=== PATIENT | male | born 1995 | race African-American/Black ===

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

== ENCOUNTER 2017-07-17 21:09 | Emergency (ER) | payer OTHER ==
[2017-07-17 21:25] VITALS: BP 115/56; PULSE 80; TEMP 98.6; BMI 25.7
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
== END 2017-07-17 22:31 | disposition home or self-care (01) ==
LOC: JER 21:09 → JERFT 21:09
DX: S60.512A Abrasion of left hand, initial encounter (principal); W22.8XXA Striking against or struck by other objects, initial encounter; Y93.89 Activity, other specified; Y92.89 Other specified places as the place of occurrence of the external cause; F41.9 Anxiety disorder, unspecified; J45.909 Unspecified asthma, uncomplicated
CPT/HCPCS: 73130-TC-LT; 99281-25

== ENCOUNTER 2017-10-13 23:59 | Emergency (ER) | payer OTHER ==
[2017-10-14 00:22] VITALS: BP 142/61; PULSE 72; TEMP 98.6; BMI 24.4
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
[2017-10-14] MEDS ORDERED: SODIUM CHLORIDE 0.9% 500 ML INFUS.BAG IV ONE ×2 (00:56→03:11)
[2017-10-14 01:19] LABS: BASO % 0.9 % (0-2.0); EOS % 2.1 % (0-4.5); HEMATOCRIT 39.5 % (35.4-49); HEMOGLOBIN 13.2 GM/dL (11.7-16.9); LYMPH % 41.5 % (8-40); MCH 29.3 pg (25.7-33.7); MCHC 33.4 g/dl (32.0-35.9); MEAN CELL VOLUME 87.6 fl (80-96); MEAN PLT VOLUME 9.1 fl (7.5-11.1); NEUT % 46.5 % (42.8-82.8); PLATELET COUNT 224 K/MM3 (134-434); RBC 4.51 M/mm3 (4.00-5.60); RDW 12.7 % (11.9-15.9); WHITE BLOOD COUNT 6.3 K/mm3 (4.0-10.0)
[2017-10-14 01:29] LABS: CHLORIDE 102 mmol/L (98-107); POTASSIUM 3.7 mmol/L (3.5-5.1); SODIUM 136 mmol/L (136-145)
[2017-10-14 01:34] LABS: ALBUMIN 4.2 g/dl (3.4-5.0); ANION GAP 9 (8-16); BLOOD UREA NITROGEN 23 mg/dL (7-18); CALCIUM 9.2 mg/dL (8.5-10.1); CO2 25 mmol/L (21-32); CREATININE 1.3 mg/dL (0.7-1.3); GLUCOSE,RANDOM 91 mg/dL (74-106); LIPASE 104 U/L (73-393); SGOT/AST 14 U/L (15-37); SGPT/ALT 24 U/L (12-78)
[2017-10-14 01:36] LABS: ALK PHOS 72 U/L (45-117); BILIRUBIN,TOTAL 1.1 mg/dL (0.2-1.0); TOT PROT 7.5 g/dl (6.4-8.2)
[2017-10-14] MEDS ORDERED: ACETAMINOPHEN 1000 MG/100 ML VIAL (NON FORMULARY) IVPB ONE (03:10)
[2017-10-14] MEDS ORDERED: ACETAMINOPHEN INJECTION 100 ML IVPB ONE (03:27)
== END 2017-10-14 04:48 | disposition home or self-care (01) ==
LOC: JER 23:59
PROC: 3E033NZ Introduction of Analgesics, Hypnotics, Sedatives into Peripheral Vein, Percutaneous Approach (ICD-10-PCS; principal; 2017-10-13)
PROC: 3E033GC Introduction of Other Therapeutic Substance into Peripheral Vein, Percutaneous Approach (ICD-10-PCS; 2017-10-13)
DX: B34.9 Viral infection, unspecified (principal)
CPT/HCPCS: 36415; 80053; 83690; 85025; 87804; 99282-25

== ENCOUNTER 2020-06-09 15:39 | Emergency (ER) | payer OTHER ==
--- NOTE | 2020-06-09 15:47 | PDOC ---
Rapid Medical Evaluation Chief Complaint: Injury Time Seen by Provider: 06/09/20 15:44 Medical Evaluation: Allergies Allergy/AdvReac Type Severity Reaction Status Date / Time No Known Allergies Allergy Verified 10/14/17 00:20 06/09/20 15:44 I have performed a brief in-person evaluation of this patient. The patient presents with a chief complaint of: left hand pain s/p injury during martial art yesterday Pertinent physical exam findings: superficial abrasion to back of left index finger with mild swelling I have ordered the following: left hand x-ray The patient will proceed to the ED for further evaluation. Discharge Disposition - Diagnosis Injury of left hand Qualifiers: Encounter type: initial encounter Qualified Code(s): S69.92XA - Unspecified injury of left wrist, hand and finger(s), initial encounter - Discharge Dispostion Condition at time of disposition: Stable - Referrals - Patient Instructions - Post Discharge Activity
[2020-06-09 15:50] VITALS: BP 121/60; PULSE 68; BMI 26.4
[2020-06-09] MEDS ORDERED: IBUPROFEN 600 MG TABLET (FP) PO ONE ×2 (16:18→16:35)
--- NOTE | 2020-06-09 16:24 | PDOC ---
History of Present Illness - General Chief Complaint: Injury Stated Complaint: LT. HAND INJURY Time Seen by Provider: 06/09/20 15:44 History Source: Patient Exam Limitations: No Limitations - History of Present Illness Initial Comments: 06/09/20 16:19 25 year old male with history of asthma and heart murmur presents for injury to left hand. Patient states he sustained injury while doing martial arts with a friend, he missed his target and punched a piece of wood. Reports pain and swelling in left hand; pain extending up index finger. States pain worse with flexion and extension of finger. Denies numbness or tingling in tips of finger. Occurred: reports: yesterday Severity: reports: mild Upper Extremity Pain Location: left: 2nd finger, hand Method of Injury: reports: direct blow Modifying Factors: improves with: immobilization, pain medication Extremity Pain Location - Extremity Pain Location Extremity Pain Locations: left: 2nd finger, hand Past History - Medical History Allergies/Adverse Reactions: Allergies Allergy/AdvReac Type Severity Reaction Status Date / Time No Known Allergies Allergy Verified 06/09/20 15:46 Home Medications: Ambulatory Orders NK [No Known Home Medication] 08/11/16 Asthma: Yes Cardiac Disorders: Yes (innocent HEART MURMUR) COPD: No Psychiatric Problems: Yes (depression) - Immunization History Immunization Up to Date: Yes - Psycho-Social/Smoking History Smoking Status: No Smoking History: Never smoked Have you smoked in the past 12 months: No Number of Cigarettes Smoked Daily: 0 Review of Systems - Review of Systems Able to Perform ROS?: Yes Is the patient limited Albanian proficient: No Constitutional: No: Chills, Fever HEENTM: No: Nose Pain, Throat Swelling, Difficulty Swallowing Respiratory: No: Cough, Shortness of Breath, Wheezing Cardiac (ROS): No: Lightheadedness, Palpitations : No: Burning, Dysuria, Hematuria Musculoskeletal: Yes: Joint Swelling. No: Back Pain, Gout, Muscle Weakness Integumentary: Yes: Bruising Neurological: No: Headache, Numbness, Paresthesia *Physical Exam - Vital Signs Last Vital Signs Temp Pulse Resp BP Pulse Ox 68 18 121/60 100 06/09/20 15:42 06/09/20 15:42 06/09/20 15:42 06/09/20 15:42 - Physical Exam General Appearance: Yes: Nourished, Appropriately Dressed HEENT: positive: Pharynx Normal Neck: positive: Supple. negative: Lymphadenopathy (R), Lymphadenopathy (L) Respiratory/Chest: positive: Lungs Clear Cardiovascular: positive: Regular Rhythm, Regular Rate Extremity: positive: Normal Capillary Refill Integumentary: positive: Swelling, Other (+abrasion to left index finger, + swelling pain with flexion and extension of 2nd left finger. ) Neurologic: positive: Fully Oriented, Alert Medical Decision Making - Medical Decision Making 06/09/20 16:24 25 year old male with history of asthma and heart murmur presents for injury to left hand. Patient states he sustained injury while doing martial arts with a friend, he missed his target and punched a piece of wood. left hand injury -xray of left hand -analgesia reassess 06/09/20 17:45 xray read by me shows no fracture abrasions cleansed and nicki wrap with splint to index finger applied 06/09/20 19:56 final read also negative for fracture Discharge - Discharge Information Problems reviewed: Yes Clinical Impression/Diagnosis: Injury of left hand Qualifiers: Encounter type: initial encounter Qualified Code(s): S69.92XA - Unspecified injury of left wrist, hand and finger(s), initial encounter Hand abrasion Qualifiers: Encounter type: initial encounter Laterality: left Qualified Code(s): S60.512A - Abrasion of left hand, initial encounter Condition: Stable Disposition: HOME - Admission No - Follow up/Referral Referrals: Rivera Mon MD [Primary Care Provider] - Call tomorrow Sarkis Freitas MD [Staff Physician] - Call tomorrow - Patient Discharge Instructions Patient Printed Discharge Instructions: DI for Hand Injury Additional Instructions: Please remove nicki wrap at bedtime may apply ice compress for 20 minutes 3 to 4 times daily for 2 more days Call hand specialist for follow up appointment - Post Discharge Activity Work/Back to School Note: Back to Work
== END 2020-06-09 18:03 | disposition home or self-care (01) ==
LOC: JER 15:39
DX: S69.92XA Unspecified injury of left wrist, hand and finger(s), initial encounter (principal)
CPT/HCPCS: 73130-TC-LT-FY; 99283-25

== ENCOUNTER 2020-12-12 09:55 | Emergency (ER) | payer OTHER ==
[2020-12-12 10:05] VITALS: TEMP 98.7; BMI 25.7
[2020-12-12] MEDS ORDERED: ONDANSETRON 4 MG/2 ML VIAL IVPUSH ONE (10:22)
[2020-12-12] MEDS ORDERED: SODIUM CHLORIDE 1,000 ML IV STA (10:22)
[2020-12-12] MEDS ORDERED: ONDANSETRON 4 MG/2 ML VIAL ONE (10:35)
[2020-12-12 11:24] LABS: EOS % 1.1 % (0-4.5); HEMOGLOBIN 15.5 GM/dL (11.7-16.9); LYMPH % 30.3 % (8-40); MCH 30.3 pg (25.7-33.7); MCHC 34.4 g/dl (32.0-35.9); MEAN CELL VOLUME 88.2 fl (80-96); MEAN PLT VOLUME 9.3 fl (7.5-11.1); MONO % 9.2 % (3.8-10.2); NEUT % 58.4 % (42.8-82.8); PLATELET COUNT 226 K/MM3 (134-434); RDW 13.2 % (11.9-15.9); WHITE BLOOD COUNT 4.4 K/mm3 (4.0-10.0)
[2020-12-12 11:44] LABS: POTASSIUM 4.5 mmol/L (3.5-5.1)
[2020-12-12 11:46] LABS: CALCIUM 10.5 mg/dL (8.5-10.1)
[2020-12-12 11:47] LABS: ALBUMIN 5.1 g/dl (3.4-5.0); BLOOD UREA NITROGEN 16.2 mg/dL (7-18)
[2020-12-12 11:50] LABS: CREATININE 1.1 mg/dL (0.55-1.3)
[2020-12-12 11:51] LABS: BILIRUBIN,TOTAL 1.8 mg/dL (0.2-1); TOT PROT 8.9 g/dl (6.4-8.2)
[2020-12-12 12:54] VITALS: BP 118/68; PULSE 72
== END 2020-12-12 12:52 | disposition home or self-care (01) ==
LOC: JER 09:55
PROC: 3E033GC Introduction of Other Therapeutic Substance into Peripheral Vein, Percutaneous Approach (ICD-10-PCS; principal; 2020-12-12)
PROC: 3E0337Z Introduction of Electrolytic and Water Balance Substance into Peripheral Vein, Percutaneous Approach (ICD-10-PCS; 2020-12-12)
DX: R11.2 Nausea with vomiting, unspecified (principal)
CPT/HCPCS: 36415; 80053; 83690; 85025; 99284-25

== ENCOUNTER 2020-12-13 10:20 | Emergency (ER) | payer OTHER ==
[2020-12-13 10:33] VITALS: BMI 25.7
[2020-12-13 10:34] VITALS: TEMP 98.3
[2020-12-13] MEDS ORDERED: LACTATED RINGERS SOLUTION 1000 ML INFUS.BAG IV ONE ×2 (11:04→12:57)
[2020-12-13 11:24] LABS: BASO % 1.1 % (0-2.0); EOS % 1.3 % (0-4.5); HEMATOCRIT 42.4 % (35.4-49); HEMOGLOBIN 14.5 GM/dL (11.7-16.9); LYMPH % 38.4 % (8-40); MCH 30.3 pg (25.7-33.7); MCHC 34.3 g/dl (32.0-35.9); MEAN CELL VOLUME 88.5 fl (80-96); MEAN PLT VOLUME 9.7 fl (7.5-11.1); MONO % 9.6 % (3.8-10.2); NEUT % 49.6 % (42.8-82.8); PLATELET COUNT 232 K/MM3 (134-434); RBC 4.79 M/mm3 (4.00-5.60); RDW 13.4 % (11.9-15.9); WHITE BLOOD COUNT 4.9 K/mm3 (4.0-10.0)
[2020-12-13 11:48] LABS: POTASSIUM 4.6 mmol/L (3.5-5.1)
[2020-12-13 11:50] LABS: ALBUMIN 4.6 g/dl (3.4-5.0); BLOOD UREA NITROGEN 13.6 mg/dL (7-18); CALCIUM 9.7 mg/dL (8.5-10.1)
[2020-12-13 11:54] LABS: CREATININE 1.2 mg/dL (0.55-1.3)
[2020-12-13 11:55] LABS: BILIRUBIN,TOTAL 1.7 mg/dL (0.2-1); TOT PROT 8.1 g/dl (6.4-8.2)
[2020-12-13 12:28] VITALS: BP 115/61; PULSE 59
== END 2020-12-13 14:49 | disposition home or self-care (01) ==
LOC: JER 10:20
PROC: 3E033NZ Introduction of Analgesics, Hypnotics, Sedatives into Peripheral Vein, Percutaneous Approach (ICD-10-PCS; principal; 2020-12-13)
PROC: 3E0337Z Introduction of Electrolytic and Water Balance Substance into Peripheral Vein, Percutaneous Approach (ICD-10-PCS; 2020-12-13)
DX: R55 Syncope and collapse (principal); R19.7 Diarrhea, unspecified; R94.5 Abnormal results of liver function studies; R19.8 Other specified symptoms and signs involving the digestive system and abdomen
CPT/HCPCS: 36415; 80053; 85025; 93005; 93010; 99284-25

== ENCOUNTER 2021-05-25 13:26 | Emergency (ER) | payer OTHER ==
[2021-05-25 14:08] VITALS: BP 118/72; PULSE 80; TEMP 98.3; BMI 27.1
[2021-05-25] MEDS ORDERED: LACTATED RINGERS SOLUTION 1000 ML INFUS.BAG IV ONE (14:40)
[2021-05-25] MEDS ORDERED: LORazepam 2 MG/ML SDV VIAL IVPUSH ONE (14:40)
[2021-05-25] MEDS ORDERED: LORazepam 2 MG/ML SDV VIAL ONE (15:22)
== END 2021-05-25 17:50 | disposition home or self-care (01) ==
LOC: JER 13:26
PROC: 3E033GC Introduction of Other Therapeutic Substance into Peripheral Vein, Percutaneous Approach (ICD-10-PCS; principal; 2021-05-25)
DX: F12.99 Cannabis use, unspecified with unspecified cannabis-induced disorder (principal); R11.2 Nausea with vomiting, unspecified
CPT/HCPCS: 99284-25; C9803; U0003; U0005

== ENCOUNTER 2022-07-23 22:59 | Emergency (ER) | payer OTHER ==
[2022-07-23 23:17] VITALS: BP 113/58; PULSE 71; RESP 18; TEMP 97.8; BMI 25.7
[2022-07-24] MEDS ORDERED: ACETAMINOPHEN 325 MG TABLET (FP) PO ONE (02:03)
== END 2022-07-24 02:38 | disposition home or self-care (01) ==
LOC: JER 22:59
DX: M54.2 Cervicalgia (principal); M54.50 Low back pain, unspecified; V49.40XA Driver injured in collision with unspecified motor vehicles in traffic accident, initial encounter
CPT/HCPCS: 99283-25

== ENCOUNTER 2023-03-25 17:23 | Emergency (ER) | payer OTHER ==
[2023-03-25 17:31] VITALS: BP 108/62; PULSE 58; RESP 20; TEMP 98.6; BMI 26.4
== END 2023-03-25 20:56 | disposition home or self-care (01) ==
LOC: JER 17:23
DX: R10.13 Epigastric pain (principal); Z20.822 Contact with and (suspected) exposure to COVID-19
CPT/HCPCS: 0241U-QW; 99283-25

== ENCOUNTER 2023-05-04 09:31 | Emergency (ER) | payer SELFPAY ==
[2023-05-04 09:48] VITALS: BP 110/59; PULSE 71; RESP 18; TEMP 98.2; BMI 26.4
[2023-05-04] MEDS ORDERED: predniSONE 20 MG TABLET (UD) PO ONE (09:59)
[2023-05-04] MEDS ORDERED: ALBUTEROL SO4 2.5/IPRATROPIUM 0.5 INH SOL 3 ML VIAL.NEB. NEB ONE ×2 (09:59→10:00)
[2023-05-04] MEDS ORDERED: predniSONE 20 MG TABLET (UD) ONE (10:00)
== END 2023-05-04 10:56 | disposition home or self-care (01) ==
LOC: JERFT 09:31 → JER 09:31 → JERFT 10:56
PROC: 3E0F7GC Introduction of Other Therapeutic Substance into Respiratory Tract, Via Natural or Artificial Opening (ICD-10-PCS; principal; 2023-05-04)
DX: J45.909 Unspecified asthma, uncomplicated (principal); R05.9 Cough, unspecified; R06.02 Shortness of breath
CPT/HCPCS: 99283-25

== ENCOUNTER 2023-10-02 22:23 | Emergency (ER) | payer SELFPAY ==
[2023-10-02 22:35] VITALS: BP 117/70; PULSE 80; RESP 18; TEMP 98.1; BMI 25.7
[2023-10-02] MEDS ORDERED: ONDANSETRON 4 MG/2 ML VIAL IVPUSH STA (23:38)
[2023-10-02] MEDS ORDERED: SODIUM CHLORIDE 1,000 ML IV STA (23:38)
[2023-10-02] MEDS ORDERED: ONDANSETRON 4 MG/2 ML VIAL ONE (23:47)
[2023-10-03 00:14] LABS: BASO % 0.2 % (0-2.0); EOS % 0.4 % (0-4.5); HEMOGLOBIN 14.8 GM/dL (11.7-16.9); LYMPH % 3.6 % (8-40); MCH 29.4 pg (25.7-33.7); MCHC 32.9 g/dl (32.0-35.9); MEAN CELL VOLUME 89.6 fl (80-96); MEAN PLT VOLUME 8.7 fl (7.5-11.1); MONO % 5.4 % (3.8-10.2); NEUT % 90.4 % (42.8-82.8); PLATELET COUNT 194 10^3/uL (134-434); RBC 5.03 M/mm3 (4.00-5.60); RDW 13.9 % (11.9-15.9); WHITE BLOOD COUNT 12.5 K/mm3 (4.0-10.0)
[2023-10-03] MEDS ORDERED: METOCLOPRAMIDE HCL INJECTION 10 MG/2 ML VIAL IVPB ONE (00:25)
[2023-10-03] MEDS ORDERED: METOCLOPRAMIDE HCL INJECTION 10 MG/2 ML VIAL ONE (00:40)
[2023-10-03 00:52] LABS: POTASSIUM 4.4 mmol/L (3.5-5.1)
[2023-10-03 00:54] LABS: ALBUMIN 4.1 g/dl (3.4-5.0); BLOOD UREA NITROGEN 14.4 mg/dL (7-18); CALCIUM 9.5 mg/dL (8.5-10.1)
[2023-10-03 00:57] LABS: CREATININE 0.9 mg/dL (0.55-1.3)
[2023-10-03 00:59] LABS: BILIRUBIN,TOTAL 1.1 mg/dL (0.2-1); TOT PROT 7.8 g/dl (6.4-8.2)
== END 2023-10-03 03:01 | disposition home or self-care (01) ==
LOC: JER 22:23
PROC: 3E033GC Introduction of Other Therapeutic Substance into Peripheral Vein, Percutaneous Approach (ICD-10-PCS; principal; 2023-10-03)
PROC: 3E033GC Introduction of Other Therapeutic Substance into Peripheral Vein, Percutaneous Approach (ICD-10-PCS; 2023-10-03)
PROC: 3E0337Z Introduction of Electrolytic and Water Balance Substance into Peripheral Vein, Percutaneous Approach (ICD-10-PCS; 2023-10-03)
DX: R11.2 Nausea with vomiting, unspecified (principal); R10.31 Right lower quadrant pain; R19.7 Diarrhea, unspecified; Z20.822 Contact with and (suspected) exposure to COVID-19
CPT/HCPCS: 0241U-QW; 36415; 80053; 83690; 85025; 99284-25